=== PATIENT | female | born 1975 | race Caucasian/White ===

== ENCOUNTER → 2023-10-27 09:42 | Outpatient (REF) | payer OTHER, SELFPAY | LOC: HWRAD 09:42 | PROVIDERS: ATTENDING PHYSICIAN Internal Medicine Gastroenterology; FAMILY PHYSICIAN Internal Medicine | DX: R10.13 Epigastric pain (principal) | CPT/HCPCS: 76700 ==

== ENCOUNTER → 2023-11-03 06:23 | Day surgery (SDC) | payer OTHER, SELFPAY | LOC: GI 06:23 | PROVIDERS: ATTENDING PHYSICIAN Internal Medicine Gastroenterology | DX: C18.9 Malignant neoplasm of colon, unspecified (principal); D12.4 Benign neoplasm of descending colon; D12.5 Benign neoplasm of sigmoid colon; K56.690 Other partial intestinal obstruction; K57.30 Diverticulosis of large intestine without perforation or abscess without bleeding; D12.8 Benign neoplasm of rectum; K62.1 Rectal polyp; R19.4 Change in bowel habit; K64.8 Other hemorrhoids; R10.13 Epigastric pain | CPT/HCPCS: 45385; 45380; 45381; 43235; 88305; 88342 ==

== ENCOUNTER → 2023-11-06 13:54 | Outpatient (REF) | payer OTHER, SELFPAY | LOC: RAD 13:54 | PROVIDERS: ATTENDING PHYSICIAN Surgery; FAMILY PHYSICIAN Internal Medicine | DX: K63.89 Other specified diseases of intestine (principal) | CPT/HCPCS: 71260; 74177; Q9967 ==

== ENCOUNTER 2023-11-23 06:33 | Inpatient (IN) | payer OTHER, SELFPAY ==
[2023-11-16 12:28] VITALS: BMI 25.1
[2023-11-16 13:05] LABS: INR 1.03; PT 13.5 Sec (11.4-14.6)
[2023-11-16 13:06] LABS: APTT 28.2 Sec (23.4-35.0)
[2023-11-16 13:29] LABS: Glycohemoglobin (HgbA1c) 5.1 % (4.0-5.6)
[2023-11-16 15:14] LABS: CEA 0.62 ng/ml
[2023-11-23] VITALS (15 sets, daily range): BP systolic 90–121; BP diastolic 51–69; BMI 25.1
[2023-11-23] MEDS: NEURONTIN 600 MG PO (08:53)
[2023-11-23] MEDS: HEPARIN 5000 UNITS SC (08:53)
[2023-11-23] MEDS: TYLENOL 1000 MG PO (08:53)
[2023-11-23] MEDS: ENTEREG 12 MG PO (08:53)
[2023-11-23] MEDS: NORMOSOL-R 1000 IV ×3 (08:54→23:03)
--- NOTE | 2023-11-23 13:07 | W.IMMPOSTOP ---
Addendum entered and electronically signed by Martin Hardy MD 11/23/23 13:21:
Patient's updated via phone conversation.
Original Note:
Surgical Immed Post Op Note
-
Primary Surgeon: Francine Hardy MD
Assisting Surgeon: FELIBERTO Pena
Pre-op Diagnosis: splenic flexure cancer
Post-op Diagnosis: distal transverse colon cancer
Procedure Performed: 1) robotic left colectomy 2) takedown splenic flexure
Anesthesia Type: general plus local
Specimen / Cultures: left colon
Estimated Blood Loss: 50 cc
Complications: no immediate
Operative Findings: 1) distal transverse colon tattooing with associated tumor 2) no obvious metastases
Lei in bladder.
Will send to med surg.
[2023-11-23 13:51] LABS: % Basophils 0.3 % (0-2); % Immature Granulocytes 0.5 % (0-0.5); % Lymphocytes 2.5 % (20.5-51.1); % Monocytes 1.1 % (1.7-9.3); % Neutrophils 95.6 % (42.2-75.2); Absolute Immature Granulocytes 0.1 10^3/uL (0-0.05); Absolute Lymphocytes 0.4 10^3/uL (1.2-3.4); Absolute Monocytes 0.2 10^3/uL (0.1-0.6); Absolute Neutrophils 14.3 10^3/uL (1.4-6.5); Hematocrit 34.7 % (37.0-47.0); Hemoglobin 12.1 g/dL (12.0-16.0); Mean Corp Hgb Conc. 34.9 g/dL (33.0-37.0); Mean Corpuscular Hgb 29.9 pg (27.0-31.0); Mean Corpuscular Volume 85.7 fL (81.0-99.0); Mean Platelet Volume 9.2 fL (7.4-10.4); Nucleated Red Blood Cells % 0 %; Platelet Count 260 10^3/uL (130-400); Red Blood Cell Count 4.05 10^6/uL (4.20-5.40); Red Cell Dist. Width 11.9 % (11.5-14.5)
[2023-11-23 13:56] LABS: Blood Urea Nitrogen 15 mg/dl (7-17); Calcium 8.2 mg/dl (8.4-10.2); Carbon Dioxide 19 mmol/L (22-30); Chloride 105 mmol/L (98-107); Estimated Creatinine Clearance 96 ml/min; Glucose 114 mg/dl (70-99); Potassium 3.9 mmol/L (3.5-5.1); Sodium 133 mmol/L (135-145); eGFR > 60.00
[2023-11-23] MEDS: TORADOL 15 MG IV ×2 (14:26→19:57)
--- NOTE | 2023-11-23 15:55 | PTCARENOTE ---
Pt arrived to 2S in bed. Full assessment completed. IVF infusing per order. Lei catheter clean and intact draining yellow urine. Abdominal lap sites C/D/I, glued and ANEL. Bed locked and in the lowest position, safety maintained. Oriented to room
and call christensen, spouse at bedside.
[2023-11-23] MEDS: TYLENOL 650 MG PO ×3 (16:32→23:30)
--- NOTE | 2023-11-23 21:00 | PTCARENOTE ---
Pt ambulated in hallway, was able to walk 2x around unit with standby assist. Assessment ongoing.
[2023-11-24] MEDS: TORADOL 15 MG IV ×4 (01:01→20:02)
[2023-11-24] MEDS: TYLENOL 650 MG PO ×5 (03:49→20:01)
[2023-11-24 04:00] VITALS: BP 99/57
[2023-11-24 05:12] LABS: % Basophils 0.1 % (0-2); % Immature Granulocytes 0.3 % (0-0.5); % Lymphocytes 9.2 % (20.5-51.1); % Neutrophils 79.4 % (42.2-75.2); Absolute Lymphocytes 0.7 10^3/uL (1.2-3.4); Absolute Monocytes 0.9 10^3/uL (0.1-0.6); Absolute Neutrophils 6.2 10^3/uL (1.4-6.5); Hematocrit 33.5 % (37.0-47.0); Hemoglobin 11.4 g/dL (12.0-16.0); Mean Corpuscular Hgb 29.4 pg (27.0-31.0); Mean Corpuscular Volume 86.3 fL (81.0-99.0); Mean Platelet Volume 9.5 fL (7.4-10.4); Nucleated Red Blood Cells % 0 %; Platelet Count 274 10^3/uL (130-400); Red Blood Cell Count 3.88 10^6/uL (4.20-5.40); Red Cell Dist. Width 11.9 % (11.5-14.5); White Blood Cell Count 7.8 10^3/uL (4.8-10.8)
[2023-11-24 05:14] VITALS: BMI 25.0
[2023-11-24 05:42] LABS: Blood Urea Nitrogen 13 mg/dl (7-17); Calcium 8.4 mg/dl (8.4-10.2); Carbon Dioxide 20 mmol/L (22-30); Chloride 106 mmol/L (98-107); Estimated Creatinine Clearance 96 ml/min; Glucose 104 mg/dl (70-99); Magnesium 2.1 mg/dl (1.6-2.3); Potassium 4.2 mmol/L (3.5-5.1); Sodium 131 mmol/L (135-145); eGFR > 60.00
[2023-11-24 07:49] VITALS: BP 99/60
[2023-11-24] MEDS: PROTONIX IV 40 MG IV (08:53)
[2023-11-24] MEDS: NSS (PRESERVATIVE FREE) 10 ML IV (08:53)
[2023-11-24] MEDS: NORMOSOL-R 1000 IV (08:54)
[2023-11-24] MEDS: ENTEREG 12 MG PO ×2 (08:54→20:01)
--- NOTE | 2023-11-24 09:48 | W.PN.CRS1 ---
Addendum entered and electronically signed by Martin Hardy MD 11/24/23 15:40:
Of note patient does have mild hyponatremia.
Original Note:
Today's Communication / Plan
-
DC Lei
Lovenox
Clear liquids
Assessment/Plan
-
POD#1 1) robotic left colectomy 2) takedown splenic flexure
1. Vitals and labs normal.
2. Start on a clear liquid diet. Advance to full liquids if tolerated.
3. DC Lei.
4. Add Lovenox. Teds and SCDs in place.
Pain control: Morphine as needed, Tylenol and Toradol standing.
5. OR pathology pending.
6. DC IV fluids when tolerating a diet.
7. Out of bed as tolerated.
Subjective Data
Procedure
11/23/2023- 1) robotic left colectomy 2) takedown splenic flexure
Subjective Data
Date of Service: November 24, 2023
Patient states she does not have flatus yet. She walked the halls last evening. She denies nausea or vomiting. She is a little bit hungry. She does not have abdominal pain but describes it more as a 'soreness'.
Objective Data
-
Vital Signs
Temp Pulse Resp BP Pulse Ox
98.3 F 59 17 99/60 97
11/24/23 07:49 11/24/23 07:49 11/24/23 07:49 11/24/23 07:49 11/24/23 07:49
Intake & Output
11/23/23 11/24/23 11/25/23
06:59 06:59 06:59
Intake Total 1000 / 1000
Output Total 1060 / 1060
Balance -60 / -60
Intake:
Oral fluids 300 / 300
IV fluids (Total) 700 / 700
Normosal 450 / 450
IV piggybacks 0 / 0
Output:
Urine, Lei 1060 / 1060
Lab Results
11/24/23 04:39
11/24/23 04:39
Physical Exam
-
General: No Acute Distress and AOx3
Abdomen: Soft, Non Distended and Non Tender
Skin: Warm and Dry
Incision: Clear, Dry, Intact
--- NOTE | 2023-11-24 11:19 | CM ---
Reviewed the chart notes and spoke with the patient at the bedside. The patient resides with her spouse and children in a two story home with two steps to enter. The patient reports no DME/VN/SNF in the past. The patient confirmed [facility] [address] [place]. The patient anticipates being discharged to home with no additional needs being identified at this time. CM continues to be available to patient/family and is monitoring medical plan for needs at
discharge.
Plan: Discharge to home when medically stable.
--- NOTE | 2023-11-24 14:30 | PN.CDI ---
CDI
- -
CDI:
Physician Documentation Request
Admit Date: 11/23/23 06:33
Dear Doctor Hayley,
Patient admitted with distal transverse colon cancer s/p robotic left colectomy and takedown splenic flexure.
Na levels documented below:
Patient received IV Normosol-R.
Laboratory Tests
11/23/23 11/24/23
13:32 04:39
Sodium 133 L 131 L
Based on the above, please clarify in the progress notes, the appropriate diagnosis, if significant, that supports the above abnormalities and additional evaluation, monitoring and/or treatment rendered:
Hyponatremia
Insignificant abnormal lab findings
Other
Unable to determine
Use of terms such as suspected, likely, concern for, or probable (associated with a specific diagnosis that is being evaluated, monitored, or treated as if it exists) are acceptable and can be coded in the inpatient setting, when documented at the
time of discharge.
Thank you,
Amarilis SOSA,RN,CCDS
CDI Specialist
Available via [place] text
Please use your independent medical judgment in providing your response.
[2023-11-24 15:40] VITALS: BP 100/58
[2023-11-24] MEDS: MORPHINE SULFATE 2 MG IV ×2 (16:03→17:19)
[2023-11-24] MEDS: LOVENOX 40 MG SC (17:19)
[2023-11-24] MEDS: NORMOSOL-R IV (21:49)
[2023-11-24] MEDS: MORPHINE SULFATE 4 MG IV (21:50)
[2023-11-24 23:04] VITALS: BP 87/63
[2023-11-25] MEDS: MORPHINE SULFATE 2 MG IV ×2 (02:04→06:33)
[2023-11-25] MEDS: TORADOL 15 MG IV ×4 (02:04→20:22)
[2023-11-25] MEDS: TYLENOL PO ×2 (04:43)
[2023-11-25 05:37] VITALS: BMI 25.5
[2023-11-25 06:32] VITALS: BP 100/62
[2023-11-25 07:50] VITALS: BP 99/57
[2023-11-25] MEDS: PROTONIX IV 40 MG IV (08:37)
[2023-11-25] MEDS: NSS (PRESERVATIVE FREE) 10 ML IV (08:40)
[2023-11-25] MEDS: TYLENOL 650 MG PO ×4 (08:41→20:22)
[2023-11-25] MEDS: ENTEREG PO (08:42)
--- NOTE | 2023-11-25 08:52 | W.PN.GS2 ---
Today's Communication / Plan
-
Advance diet
Assessment / Plan
-
47 yo female with h/o distal transverse colon ca who presented for surgical management now POD #2 robotic left colectomy
AFVSS
Following expected course
+BM/Flatus, tolerating FLD
--Advance to LRD
--Continue multimodal agents, add PO oxycodone
--OOB/Ambulate
--Stop Entereg
--OR path pending
--Lovenox/SCD's for VTE ppx
Subjective Data
-
Date of Service: November 25, 2023
Patient seen and examined at bedside with Dr. Orellana. Pain better this am after morphine. Has been passing flatus and loose stools. Denies n/v. Tolerating full liquids. Voiding.
Objective Data
-
Intake and Output
11/24/23 11/25/23 11/26/23
06:59 06:59 06:59
Intake Total 1000 / 1000 2039 / 2039
Output Total 1060 / 1060 1200 / 1200
Balance -60 / -60 840 / 840
Intake:
Oral fluids 300 / 300 2039
IV fluids (Total) 700 / 700
Normosal 450 / 450
IV piggybacks 0 / 0
Output:
Urine, Lei 1060 / 1060 900 / 900
Urine, Voided 300 / 300
Other:
Number of approximated MODERATE 3
amounts of urine
Vital Signs
Temp Pulse Resp BP Pulse Ox
98.2 F 56 16 99/57 100
11/25/23 07:50 11/25/23 07:50 11/25/23 07:50 11/25/23 07:50 11/25/23 07:50
Lab Results
11/24/23 04:39
11/24/23 04:39
Calcium 8.4 mg/dl (8.4-10.2) 11/24/23 04:39
Magnesium 2.1 mg/dl (1.6-2.3) 11/24/23 04:39
Physical Exam
-
NAD
ABD soft, mild distention, NT, [employer]
Incisions well approximated with intact glue
[2023-11-25 14:55] VITALS: BP 106/63
[2023-11-25] MEDS: LOVENOX 40 MG SC (17:57)
[2023-11-25] MEDS: ROXICODONE 5 MG PO ×2 (17:57→22:32)
[2023-11-25 22:47] VITALS: BP 118/60
[2023-11-26] MEDS: TORADOL 15 MG IV (02:10)
[2023-11-26] MEDS: TYLENOL PO ×2 (04:00)
[2023-11-26 05:34] VITALS: BMI 25.1
[2023-11-26] MEDS: PROTONIX IV IV ×2 (07:51→08:08)
[2023-11-26] MEDS: NSS (PRESERVATIVE FREE) 10 ML IV (07:51)
[2023-11-26] MEDS: TYLENOL 650 MG PO (07:53)
[2023-11-26] MEDS: TORADOL IV (07:55)
[2023-11-26] MEDS: ROXICODONE 5 MG PO (08:01)
[2023-11-26 08:06] VITALS: BP 110/63
--- NOTE | 2023-11-26 08:18 | W.PN.GS2 ---
Today's Communication / Plan
-
D/c to home
Assessment / Plan
-
47 yo female with h/o distal transverse colon ca who presented for surgical management now POD #3 robotic left colectomy
AFVSS
Following expected course
+BM/Flatus, tolerating LRD
--Continue LRD
--Continue multimodal agents
--OOB/Ambulate
--OR path pending
Dispo planning
Subjective Data
-
Date of Service: November 26, 2023
Patient seen and examined at bedside with Dr. Philip. Jackson n/v. Tolerating diet. Passing flatus and loose stools. Pain well managed.
Objective Data
-
Intake and Output
11/25/23 11/26/23 11/27/23
06:59 06:59 06:59
Intake Total 2039 / 2039 1300 / 1300
Output Total 1200 / 1200
Balance 840 / 840 1300 / 1300
Intake:
Oral fluids 2039 1300 / 1300
Output:
Urine, Lei 900 / 900
Urine, Voided 300 / 300
Other:
Number of approximated MODERATE 3 3
amounts of urine
Number of approximated LARGE 1
amounts of urine
Number of unmeasured liquid
stools
Rectum 1
Vital Signs
Temp Pulse Resp BP Pulse Ox
98.2 F 58 16 110/63 100
11/26/23 08:06 11/26/23 08:06 11/26/23 08:06 11/26/23 08:06 11/26/23 08:06
Lab Results
11/24/23 04:39
11/24/23 04:39
Calcium 8.4 mg/dl (8.4-10.2) 11/24/23 04:39
Magnesium 2.1 mg/dl (1.6-2.3) 11/24/23 04:39
Physical Exam
-
NAD
ABD soft, ND, NT, [employer]
Incisions well approximated with intact glue
--- NOTE | 2023-11-26 08:19 | W.DCSUMMARY ---
Discharge Summary
Discharge Data
Date of Admission: 11/23/23
Date of Discharge: 11/26/23
-
Pending Results: No
Hospital Course
47 yo female with previously diagnosed splenic flexure cancer presenting for operative management with robotic left colectomy. The procedure was well tolerated and without complication. Diet was able to be advanced post operatively with good bowel
recovery. Pain was minimal and well managed with oral agents prior to discharge. She was discharged to home in stable condition with outpatient follow up planned in the coming weeks.
Discharge Plan
-
Patient Disposition: Home (Routine Discharge)
Discharge Diagnosis/Procedures: splenic flexure cancer status post robotic left colectomy
Condition: Good
Diet: Low Residue
Activity: No strenuous activity
Additional Activity: No lifting over 10lbs (gallon of milk)
Driving Restrictions: No driving for 1 week
Bathing Restrictions: OK to Shower
Wound Care: Allow glue to naturally fall off. Do not pick at incisions.
Activity Restrictions/Additional Instructions:
Please call your surgeon if you have worsening abdominal pain, nausea with vomiting or a fever >100.5
Instructions: Low Fiber Diet
Referrals:
Martin Hardy MD [Active] - in two weeks
Chuckie Coelho MD [Family Provider] -
Prescriptions:
New
acetaminophen 325 mg tablet
650 mg PO Q4HPRN PRN (Reason: mild pain) Qty: 1 0RF
ibuprofen 200 mg tablet
400 - 600 mg PO Q6HPRN PRN (Reason: moderate pain) Qty: 1 0RF
oxycodone 5 mg tablet
5 mg PO Q4HPRN PRN (Reason: breakthrough/severe pain) Qty: 15 0RF
Continued
omeprazole 40 mg Capsule,Delayed Release(Dr/Ec)
40 mg PO DAILY
alprazolam 0.5 mg Tablet
0.5 mg PO BID PRN (Reason: anxiety)
Medical Marijuana
1 tab PO HS
Discontinued
metronidazole 500 mg Tablet
500 mg PO PRE OP
neomycin 500 mg Tablet
1 g PO PRE OP
Suflave 178.7-7.3-0.5 gram Recon Soln
240 ml PO PRE OP
Rx Instructions:
DOSE #1: administer on EVENING BEFORE procedure; drink until gone
Discharge Orders:
Discharge Patient (As Directed); Ordered 11/26/23
Ordered By: Lety Browne
Discharge Date and Time
Discharge Date/Time: 11/26/23 10:13
Print Language: SURINAMESE
--- NOTE | 2023-11-26 10:57 | CM ---
CM reviewed chart
Pt left prior to CM meeting with her
Per chart review, no dc needs
Discharge Disposition- home no needs
== END 2023-11-26 10:13 | disposition home or self-care (01) | DRG 330 ==
LOC: 2 SOUTH 06:33
PROVIDERS: Physician Assistant; ADMITTING PHYSICIAN Surgery; FAMILY PHYSICIAN Internal Medicine
PROC: 0DTG4ZZ Resection of Left Large Intestine, Percutaneous Endoscopic Approach (ICD-10-PCS; 2023-11-24)
PROC: 8E0W4CZ Robotic Assisted Procedure of Trunk Region, Percutaneous Endoscopic Approach (ICD-10-PCS; 2023-11-24)
DX: C18.4 Malignant neoplasm of transverse colon (principal); C18.5 Malignant neoplasm of splenic flexure; E87.1 Hypo-osmolality and hyponatremia
CPT/HCPCS: 88309; 36415; 80048; 82378; 83036; 83735; 85025; 85610; 85730; 86850; 86900; 86901; J1335

== ENCOUNTER → 2024-06-25 08:02 | Outpatient (REF) | payer OTHER, SELFPAY | LOC: HWWDC 08:02 | PROVIDERS: ATTENDING PHYSICIAN Obstetrics & Gynecology Gynecology; FAMILY PHYSICIAN Internal Medicine | DX: Z12.31 Encounter for screening mammogram for malignant neoplasm of breast (principal) | CPT/HCPCS: 77063; 77067 ==

== ENCOUNTER → 2024-07-29 15:35 | Outpatient (REF) | payer OTHER, SELFPAY | LOC: RAD 15:35 | PROVIDERS: ATTENDING PHYSICIAN Physical Medicine & Rehabilitation; FAMILY PHYSICIAN Internal Medicine | DX: M54.16 Radiculopathy, lumbar region (principal) | CPT/HCPCS: 72114 ==

== ENCOUNTER 2024-09-27 06:23 | Day surgery (SDC) | payer BC, SELFPAY | END 2024-09-27 16:41 | disposition home or self-care (01) | LOC: GI 06:23 | PROVIDERS: ATTENDING PHYSICIAN Internal Medicine Gastroenterology | DX: Z12.11 Encounter for screening for malignant neoplasm of colon (principal); K64.8 Other hemorrhoids; K57.30 Diverticulosis of large intestine without perforation or abscess without bleeding; K63.3 Ulcer of intestine; Z86.0100 Personal history of colon polyps, unspecified; Z90.49 Acquired absence of other specified parts of digestive tract; Z85.038 Personal history of other malignant neoplasm of large intestine; K63.89 Other specified diseases of intestine; Z98.0 Intestinal bypass and anastomosis status | CPT/HCPCS: 45380; 88305 ==